=== PATIENT | female | born 1995 | race Caucasian/White ===

== ENCOUNTER 2017-05-24 12:21 | Emergency (ER) | payer OTHER ==
[2017-05-24 12:28] VITALS: BP 139/82
--- NOTE | 2017-05-24 13:18 | ER Document Report ---
ED Skin Rash/Insect Bite/Abscs - General Chief Complaint: Abscess Stated Complaint: UPPER RIGHT ARM PAIN Time Seen by Provider: 05/24/17 12:39 Information source: Patient Notes: Patient is a 22-year-old female presents emergency department today complaining of right axilla discomfort, swelling and tenderness. Patient states that she had a bump there for approximately 3 months but then over the past couple of days she tried to pop it using a razor blade and since then has become tender. Patient denies any previous history of abscess, skin infection. Denies any fevers or chills. TRAVEL OUTSIDE OF THE [place] IN LAST 30 DAYS: No - Related Data Allergies/Adverse Reactions: No Known Allergies Allergy (Unverified 05/24/17 12:27) Past Medical History - Social History Smoking Status: Never Smoker Chew tobacco use (# tins/day): No Frequency of alcohol use: None Drug Abuse: None Family History: Reviewed & Not Pertinent Renal/ Medical History: Denies: Hx Peritoneal Dialysis Review of Systems - Review of Systems Constitutional: No symptoms reported Skin: See HPI Physical Exam - Vital signs Vitals: Temp Pulse Resp BP Pulse Ox 99.2 F 102 H 16 139/82 H 97 05/24/17 12:05/24/17 12:05/24/17 12:05/24/17 12:05/24/17 12:26 - General General appearance: Appears well, Alert In distress: None - Extremities General upper extremity: Normal inspection, Nontender, Normal color, Normal ROM , Normal strength, Normal temperature - Skin Skin irregularity: Abscess - right axilla 1.5 cm in width Course - Re-evaluation Re-evalutation: 05/24/17 13:19 patient is a 22-year-old female remains stable, no distress afebrile. I&D performed at the bedside for approximately 3 cc of purulent material patient tolerated the procedure well. Patient educated on signs and symptoms to be aware to return to emergency department otherwise stable for discharge home. - Vital Signs Vital signs: Temp Pulse Resp BP Pulse Ox 99.2 F 102 H 16 139/82 H 97 05/24/17 12:26 05/24/17 12:05/24/17 12:05/24/17 12:05/24/17 12:26 Discharge - Discharge Clinical Impression: Abscess Condition: Good Disposition: HOME, SELF-CARE Instructions: Post Incision and Drainage, Cephalexin ([facility]) Additional Instructions: You were seen for an abscess that required drainage. Please clean this area with soap and water twice daily and apply a topical antibiotic. Dress the area after each cleaning. Please return if you develop fever, vomiting, the pain at the site worsens, you notice spreading redness from the area, or you have any other symptoms that are concerning to you. Prescriptions: Cephalexin Monohydrate [Keflex 500 mg Capsule] 500 mg PO QID #20 capsule Referrals: OKSANA ALONZO PA-C [Primary Care Provider] - Follow up as needed
== END 2017-05-24 13:32 | disposition home or self-care (01) ==
LOC: ER 12:21
DX: L02.413 Cutaneous abscess of right upper limb (principal)
CPT/HCPCS: 87070; 87077; 87186; 87205; 99283